=== PATIENT | male | born 1950 | race Caucasian/White ===

== ENCOUNTER 2018-04-26 09:24 | Emergency (ER) | payer MEDICARE ==
[~2018-04-26] VITALS: Ht 172.7 cm; Wt 73.0 kg
[2018-04-26] MEDS ORDERED: LISI-170 PO (09:53)
[2018-04-26] MEDS ORDERED: VITA1CAP PO (09:53)
[2018-04-26 10:52] VITALS: BP 152/87
== END 2018-04-26 10:54 | disposition home or self-care (01) ==
LOC: ED 10:48
DX: M25.552 Pain in left hip (principal); M54.5 Low back pain; I10 Essential (primary) hypertension; Z87.891 Personal history of nicotine dependence
CPT/HCPCS: 72110; 99284